=== PATIENT | female | born 1995 | race American Indian/Alaskan Native ===

== ENCOUNTER 2018-12-08 05:44 | Emergency (ER) | payer SELFPAY ==
--- NOTE | 2018-12-08 07:17 | Emergency Department Report ---
Blank Doc - Documentation Documentation: 23-year-old female. History of lymphadenopathy found at [facility] with plans for a lymph node biopsy versus was unable to fulfill the biopsy due to insurance issues. Since that time didn't have any weight loss, decreased appetite, loss of hair, insomnia, temperature changes, and lingual lymph no flareups to the neck and inguinal region. Has a family history for breast cancer and ovarian cancer. 6. We'll guidance on the next to evaluate the cause of the lymphadenopathy. Examination does yield some mild lymphadenopathy to the supraclavicular nodes and it appears to have a possible small mass to the left quadrants of the abdomen
[2018-12-08 07:49] LABS: Basophils # (Auto) 0.1 K/mm3 (0.0-0.1); Basophils % (Auto) 1.1 % (0.0-1.8); Eosinophils # (Auto) 0.1 K/mm3 (0.0-0.4); Eosinophils % (Auto) 1.7 % (0.0-4.3); Hematocrit 42.7 % (30.3-42.9); Hemoglobin 13.9 gm/dl (10.1-14.3); Lymphocytes # (Auto) 3.7 K/mm3 (1.2-5.4); Lymphocytes % (Auto) 51.7 % (13.4-35.0); Mean Corpuscular HGB Conc 33 % (30-34); Mean Corpuscular Volume 84 fl (79-97); Monocytes # (Auto) 0.4 K/mm3 (0.0-0.8); Platelet Count 396 K/mm3 (140-440); Red Blood Count 5.07 M/mm3 (3.65-5.03); Red Cell Distribution Width 14.3 % (13.2-15.2)
--- NOTE | 2018-12-08 08:00 | Emergency Department Report ---
ED General Adult HPI - General Chief complaint: Neck Pain/Injury Stated complaint: LUMPS ON NECT SWOLLEN JAW AND NECK PAIN Time Seen by Provider: 12/08/18 06:22 Source: patient Mode of arrival: Ambulatory Limitations: No Limitations - History of Present Illness Initial comments: Patient is a 23-year-old female who presents to the emergency room with com plaints of lymphadenopathy that began in September. She states it began on the right side of her neck and she was seen at [facility]. she states at that time she was experiencing night sweats, fatigue, insomnia for a couple weeks. She states she was "advised to have a biopsy" but did not at that time. She states she has continued having night sweats, fatigue, decreased appetite, feeling hoarse, hair loss, and now LAD in the groin. She denies any abdominal pain, nausea, vomiting, shortness of breath, chest pain, fever, weight loss. She states she is currently on her menstrual cycle. She states her only family cancer history is ovarian and breast cancer on her mother's side in her aunt and grandmother. Her only past medical history is asthma. She denies any allergies to medications. - Related Data Allergies Allergy/AdvReac Type Severity Reaction Status Date / Time No Known Allergies Allergy Unverified 12/08/18 08:23 ED Review of Systems ROS: Stated complaint: LUMPS ON NECT SWOLLEN JAW AND NECK PAIN Other details as noted in HPI Comment: All other systems reviewed and negative ED Past Medical Hx - Past Medical History Previous Medical History?: Yes - Surgical History Past Surgical History?: Yes - Social History Smoking Status: Current Every Day Smoker Substance Use Type: None ED Physical Exam - General Limitations: No Limitations General appearance: alert, in no apparent distress - Head Head exam: Present: atraumatic, normocephalic - Eye Eye exam: Present: normal appearance - ENT ENT exam: Present: mucous membranes moist - Neck Neck exam: Present: full ROM, lymphadenopathy (non tender, small, freely movable LAD in the right anterior cervical region ). Absent: meningismus, thyromegaly - Respiratory Respiratory exam: Present: normal lung sounds bilaterally. Absent: respiratory distress, wheezes, rales, rhonchi, stridor, accessory muscle use, decreased breath sounds, prolonged expiratory - Cardiovascular Cardiovascular Exam: Present: regular rate, normal rhythm, normal heart sounds. Absent: systolic murmur, diastolic murmur, rubs, gallop - GI/Abdominal GI/Abdominal exam: Present: soft, normal bowel sounds, other (fullness in the LUQ). Absent: guarding, rebound, rigid - Neurological Exam Neurological exam: Present: alert, oriented X3 - Psychiatric Psychiatric exam: Present: normal affect, normal mood - Skin Skin exam: Present: warm, dry, intact ED Course Vital Signs 12/08/18 12/08/18 05:55 10:25 Temperature 97.8 F Pulse Rate 78 74 Respiratory 14 16 Rate Blood Pressure 126/80 Blood Pressure 121/78 [Left] O2 Sat by Pulse 99 100 Oximetry ED Medical Decision Making - Lab Data Result diagrams: 12/08/18 07:38 12/08/18 07:38 Lab Results 12/08/18 12/08/18 12/08/18 Range/Units 07:38 07:38 07:38 WBC 7.2 (4.5-11.0) K/mm3 RBC 5.07 H (3.65-5.03) M/mm3 Hgb 13.9 (10.1-14.3) gm/dl Hct 42.7 (30.3-42.9) % MCV 84 (79-97) fl MCH 27 L (28-32) pg MCHC 33 (30-34) % RDW 14.3 (13.2-15.2) % Plt Count 396 (140-440) K/mm3 Lymph % (Auto) 51.7 H (13.4-35.0) % [place] % (Auto) 5.0 (0.0-7.3) % Eos % (Auto) 1.7 (0.0-4.3) % Baso % (Auto) 1.1 (0.0-1.8) % Lymph # 3.7 (1.2-5.4) K/mm3 [place] # 0.4 (0.0-0.8) K/mm3 Eos # 0.1 (0.0-0.4) K/mm3 Baso # 0.1 (0.0-0.1) K/mm3 Seg Neutrophils % 40.5 (40.0-70.0) % Seg Neutrophils # 2.9 (1.8-7.7) K/mm3 ESR 2 (0-20) mm/Hr Sodium 140 (137-145) mmol/L Potassium 4.7 (3.6-5.0) mmol/L Chloride 103.4 (98-107) mmol/L Carbon Dioxide 27 (22-30) mmol/L Anion Gap 14 mmol/L BUN 16 (7-17) mg/dL Creatinine 0.8 (0.7-1.2) mg/dL Estimated GFR > 60 ml/min BUN/Creatinine Ratio 20 % Glucose 116 H (65-100) mg/dL Calcium 10.0 (8.4-10.2) mg/dL Total Bilirubin 1.20 (0.1-1.2) mg/dL AST 26 (5-40) units/L ALT 16 (7-56) units/L Alkaline Phosphatase 71 (35-129) units/L C-Reactive Protein (0.00-1.30) mg/dL Total Protein 8.3 H (6.3-8.2) g/dL Albumin 4.7 (3.9-5) g/dL Albumin/Globulin Ratio 1.3 % TSH 0.678 (0.270-4.200) mlU/mL HCG, Qual (Negative) 12/08/18 12/08/18 Range/Units 07:38 07:38 WBC (4.5-11.0) K/mm3 RBC (3.65-5.03) M/mm3 Hgb (10.1-14.3) gm/dl Hct (30.3-42.9) % MCV (79-97) fl MCH (28-32) pg MCHC (30-34) % RDW (13.2-15.2) % Plt Count (140-440) K/mm3 Lymph % (Auto) (13.4-35.0) % [place] % (Auto) (0.0-7.3) % Eos % (Auto) (0.0-4.3) % Baso % (Auto) (0.0-1.8) % Lymph # (1.2-5.4) K/mm3 [place] # (0.0-0.8) K/mm3 Eos # (0.0-0.4) K/mm3 Baso # (0.0-0.1) K/mm3 Seg Neutrophils % (40.0-70.0) % Seg Neutrophils # (1.8-7.7) K/mm3 ESR (0-20) mm/Hr Sodium (137-145) mmol/L Potassium (3.6-5.0) mmol/L Chloride (98-107) mmol/L Carbon Dioxide (22-30) mmol/L Anion Gap mmol/L BUN (7-17) mg/dL Creatinine (0.7-1.2) mg/dL Estimated GFR ml/min BUN/Creatinine Ratio % Glucose (65-100) mg/dL Calcium (8.4-10.2) mg/dL Total Bilirubin (0.1-1.2) mg/dL AST (5-40) units/L ALT (7-56) units/L Alkaline Phosphatase (35-129) units/L C-Reactive Protein 0.10 (0.00-1.30) mg/dL Total Protein (6.3-8.2) g/dL Albumin (3.9-5) g/dL Albumin/Globulin Ratio % TSH (0.270-4.200) mlU/mL HCG, Qual Negative (Negative) - Radiology Data Radiology results: report reviewed CHEST 2 VIEWS INDICATION / CLINICAL INFORMATION: dizziness, chest pain. COMPARISON: None available. FINDINGS: SUPPORT DEVICES: None. HEART / MEDIASTINUM: No significant abnormality. LUNGS / PLEURA: No significant pulmonary or pleural abnormality. No pneumothorax. ADDITIONAL FINDINGS: No significant additional findings. IMPRESSION: 1. No acute findings. Signer Name: Ish Garibay MD Signed: 12/08/2018 9:24 AM Workstation Name: [id number] Transcribed By: TL Dictated By: Ish Garibay MD Electronically Authenticated By: Ish Garibay MD Signed Date/Time: 12/08/1824 CT abdomen pelvis w con INDICATION: abd pain. TECHNIQUE: All CT scans at this location are performed using the following dose modulation technique: Automated exposure control. CONTRAST: Omnipaque 300, 100 cc IV injection. COMPARISON: None available. CT abdomen: The parenchymal organs are unremarkable in appearance. Negative for abdominal mass, fluid collection or inflammation. The bowel is not dilated or thickened. CT PELVIS: Negative for mass, fluid collection or inflammation. The appendix is normal. IMPRESSION: Negative for obstruction or active inflammation. Signer Name: John Zavala MD Signed: 12/08/2018 9:44 AM Workstation Name: [id number] Transcribed By: ES Dictated By: John Zavala MD Electronically Authenticated By: John Zavala MD Signed Date/Time: 12/08/18 0944 - Medical Decision Making Patient is a 23-year-old female who presents to the emergency room with complaints of lymphadenopathy that began in September. She states it began on the right side of her neck and she was seen at [facility]. she states at that time she was experiencing night sweats, fatigue, insomnia for a couple weeks. She states she was "advised to have a biopsy" but did not at that time. She states she has continued having night sweats, fatigue, decreased appetite, feeling hoarse, hair loss, and now LAD in the groin. She denies any abdominal pain, nausea, vomiting, shortness of breath, chest pain, fever, weight loss. She states she is currently on her menstrual cycle. She states her only family cancer history is ovarian and breast cancer on her mother's side in her aunt and grandmother. Her only past medical history is asthma. She denies any allergies to medications. Vitals are normal. CRP, ESR, WBC, and TSH are all WNL. CXR is normal. CT abd/pelvis with no acute process. on exam: non tender, small, freely movable LAD in the right anterior cervical region. advised pt to please follow up with primary care as soon as possible for further evaluation and management. return to the emergency room for any new or worsening symptoms. - Differential Diagnosis HIV, lymphoma, inflammation, infection Critical care attestation.: If time is entered above; I have spent that time in minutes in the direct care of this critically ill patient, excluding procedure time. ED Disposition Clinical Impression: LAD (lymphadenopathy) Disposition: DC-01 TO HOME OR SELFCARE Is pt being admited?: No Does the pt Need Aspirin: No Condition: Stable Instructions: Lymphadenopathy (ED) Additional Instructions: please follow up with a primary care doctor as soon as possible. return to the emergency room for any new or worsening symptoms. Referrals: SUSAN CHUN MD [Primary Care Provider] - [facility] [Outside] - [facility] [Outside] - [facility] Time of Disposition: 10:06 Print Language: SLOVENIAN
[2018-12-08 08:07] LABS: Alanine Aminotransferase 16 units/L (7-56); Albumin 4.7 g/dL (3.9-5); BUN/Creatinine Ratio 20; Blood Urea Nitrogen 16 mg/dL (7-17); Hemolysis Index 52
[2018-12-08 08:24] LABS: Erythrocyte Sedimentation Rate 2 mm/Hr (0-20)
--- NOTE | 2018-12-08 09:28 | XRay Report ---
CHEST 2 VIEWS INDICATION / CLINICAL INFORMATION: dizziness, chest pain. COMPARISON: None available. FINDINGS: SUPPORT DEVICES: None. HEART / MEDIASTINUM: No significant abnormality. LUNGS / PLEURA: No significant pulmonary or pleural abnormality. No pneumothorax. ADDITIONAL FINDINGS: No significant additional findings. IMPRESSION: 1. No acute findings. Signer Name: Ish Garibay MD Signed: 12/08/2018 9:24 AM Workstation Name: [id number]
--- NOTE | 2018-12-08 09:49 | Cat Scan Report ---
CT abdomen pelvis w con INDICATION: abd pain. TECHNIQUE: All CT scans at this location are performed using the following dose modulation technique: Automated exposure control. CONTRAST: Omnipaque 300, 100 cc IV injection. COMPARISON: None available. CT abdomen: The parenchymal organs are unremarkable in appearance. Negative for abdominal mass, fluid collection or inflammation. The bowel is not dilated or thickened. CT PELVIS: Negative for mass, fluid collection or inflammation. The appendix is normal. IMPRESSION: Negative for obstruction or active inflammation. Signer Name: John Zavala MD Signed: 12/08/2018 9:44 AM Workstation Name: [id number]
[2018-12-08 10:26] VITALS: BP 121/78
== END 2018-12-08 10:25 | disposition home or self-care (01) ==
LOC: ED 05:44
DX: R59.1 Generalized enlarged lymph nodes (principal); F17.200 Nicotine dependence, unspecified, uncomplicated
CPT/HCPCS: 36415; 71046; 74177; 80053; 84443; 84703; 85025; 85652; 86140; 99284; Q9967